=== PATIENT | male | born 1955 | race Caucasian/White ===

== ENCOUNTER 2019-05-29 10:02 | Emergency (ER) | payer OTHER ==
[~2019-05-29] VITALS: Ht 167.6 cm; Wt 81.3 kg
[2019-05-29 10:06] VITALS: BP 181/89; PULSE 65; RESP 18; Ht 167.6 cm; Wt 81.3 kg
[2019-05-29] MEDS ORDERED: KETOROLAC 30 MG INJ IM STA (10:29)
[2019-05-29] MEDS ORDERED: DEXAMETHASONE 10 MG/ML 1 ML INJ IM ONE ×2 (10:30→11:00)
[2019-05-29] MEDS ORDERED: IBUP-1542 PO (10:32)
[2019-05-29] MEDS ORDERED: KETOROLAC 60 MG INJ IM STA (10:35)
[2019-05-29] MEDS ORDERED: NAPR-985 PO (10:40)
[2019-05-29] MEDS ORDERED: CYCL10TA7 PO (10:40)
[2019-05-29] MEDS ORDERED: HYDR-4011 PO (10:40)
[2019-05-29] MEDS ORDERED: MED4DP PO (10:40)
--- NOTE | 2019-05-29 10:50 | ERD ---
ER Documentation Chief Complaint Chief Complaint RT BUTTOCK PAIN THAT RADIATES DOWN RT LEG X 4 DAYS HPI 63-year-old male presenting with right buttock pain that radiates down his leg. This is been going on for the last 4 days and denies any traumatic injuries. He states he has a sharp stabbing pain radiating from his buttock to his knee and numbness to his foot. He denies any problems in urination or bowel movement and denies any saddle anesthesia. Denies abdominal pain. Denies any fevers. No swelling or redness. Medical history of diabetes and hypertension. NKDA. Surgical history denies. Social history denies ROS All systems reviewed and are negative except as per history of present illness. Medications Home Meds Active Scripts Methylprednisolone* (Medrol* DOSE PACK) 4 Mg/Dose-Pack Tab.ds.pk, 4 MG PO . DIRECTED, #1 PACKET Prov:LIBIA KAISER PA-C 05/29/19 Cyclobenzaprine Hcl* (Cyclobenzaprine Hcl*) 10 Mg Tablet, 10 MG PO TID, #15 TAB Prov:LIBIA KAISER PA-C 05/29/19 Naproxen* (Naprosyn*) 500 Mg Tablet, 500 MG PO BID PRN for PAIN AND/OR INFLAMMATION, #30 TAB Prov:LIBIA KAISER PA-C 05/29/19 Hydrocodone/Acetaminophen ([place] 5-325 Tablet) 1 Each Tablet, 1 TAB PO Q6H PRN f or PAIN, #7 TAB Prov:LIBIA KAISER PA-C 05/29/19 FmHx Family History: No diabetes, No coronary disease, No other Physical Exam Vitals Vital Signs Date Temp Pulse Resp B/P (MAP) Pulse Ox O2 O2 Flow FiO2 Time Delivery Rate 05/29/19 98.4 65 18 181/89 95 10:06 (119) Physical Exam GENERAL: The patient is well-appearing, well-nourished, in no acute distress CHEST: Clear to auscultation bilaterally. There are no rales, wheezes or rhonchi. HEART: Regular rate and rhythm. No murmurs, clicks, rubs or gallops. BACK: No midline or flank tenderness. Tenderness on right buttock extending down posterior right leg. EXTREMITIES: Equal pulses bilaterally. There is no peripheral clubbing, cyanosis or edema. No focal swelling or erythema. Full range of motion. Grossly neurovascularly intact. NEUROLOGIC: Alert and oriented. Cranial nerves II through XII intact. Motor strength in all 4 extremities with 5 out of 5 strength. Sensation grossly intact. Normal speech and gait. SKIN: There is no apparent rash or petechiae. The skin is warm and dry. Results 24 hrs Current Medications Medications Dose Sig/Melissa Start Time Status Last (Trade) Ordered Route PRN Stop Time Admin Dose Reason Admin Ketorolac 30 mg ONCE STAT 05/29/19 DC Tromethamine IM 10:29 (Toradol) 05/29/19 10:35 10 mg ONCE ONCE 05/29/19 DC Dexamethasone IM 10:30 (Decadron) 05/29/19 10:35 Ketorolac 60 mg ONCE STAT 05/29/19 DC Tromethamine IM 10:35 (Toradol) 05/29/19 10:37 10 mg ONCE ONCE 05/29/19 Dexamethasone IM 11:00 (Decadron) 05/29/19 11:01 Diazepam 5 mg ONCE ONCE 05/29/19 (Valium) PO 11:00 05/29/19 11:01 Procedures/MDM Course: Decadron, Toradol and Valium given in ED. MDM: 63-year-old male presenting with right buttock pain. I have low suspicion for discitis, epidural abscess or cauda equina. I do not feel blood work or imaging is indicated. Patient has exam findings consistent with sciatica and will be treated with supportive medications. I do not feel patient has concern for abdominal emergency. Patient is discharged with strict ER precautions and told to follow-up with primary care within 1 to 2 days for close evaluation. Patient is told symptoms change or worsen to return immediately to the ER. All questions answered at discharge Departure Diagnosis: Primary Impression: Low back pain with sciatica Condition: Stable Patient Instructions: Back Pain W/ Sciatica Referrals: COMM[facility]ITY CLINICS YOU HAVE RECEIVED A MEDICAL SCREENING EXAM AND THE RESULTS INDICATE THAT YOU DO NOT HAVE A CONDITION THAT REQUIRES URGENT TREATMENT IN THE EMERGENCY DEPARTMENT. FURTHER EVALUATION AND TREATMENT OF YOUR CONDITION CAN WAIT UNTIL YOU ARE SEEN IN YOUR DOCTORS OFFICE WITHIN THE NEXT 1-2 DAYS. IT IS YOUR RESPONSIBILITY TO MAKE AN APPOINTMENT FOR FOLOW-UP CARE. IF YOU HAVE A PRIMARY DOCTOR --you should call your primary doctor and schedule an appointment IF YOU DO NOT HAVE A PRIMARY DOCTOR YOU CAN CALL OUR PHYSICIAN REFERRAL HOTLINE AT IF YOU CAN NOT AFFORD TO SEE A PHYSICIAN YOU CAN CHOSE FROM THE FOLLOWING [facility] [id number] [facility]. [facility] [address] [facility] [facility] [address] [facility] [address]. [facility] [address] [facility]. [facility] [address] Additional Instructions: Call your primary care doctor TOMORROW for an appointment during the next 2-3 days.See the doctor sooner or return here if your condition worsens before your appointment time. LIBIA KAISER PA-C May 29, 2019 10:50
[2019-05-29] MEDS ORDERED: DIAZEPAM 5 MG TAB PO ONE (11:00)
== END 2019-05-29 11:23 | disposition home or self-care (01) ==
LOC: FTE 10:02
DX: M54.40 Lumbago with sciatica, unspecified side (principal)
CPT/HCPCS: J1100; J1885; 96372